=== PATIENT | male | born 1970 | race Caucasian/White ===

== ENCOUNTER → 2020-03-03 | Day surgery (SDC) | payer OTHER ==
[~2020-03-03] MED LIST: APIX2.5T PO; IPRATRPIUM/ALBUTEROL 0.5/2.5MG 3 ML NEBU. NEB PRN; IV RINGERS SOLUTION,LACTATED 1,000 ML IV SCH; LEVO50TA72 PO; ONDANSETRON PF 4 MG/2 ML VIAL. IV PRN; PROPOFOL 10,000 MCG/ML (20ML) VIAL IV ONE
[2020-03-03 10:56] VITALS: BP 128/88
== END | disposition home or self-care (01) ==
LOC: SURG 08:45
PROVIDERS: ATTEND Internal Medicine Gastroenterology
DX: Z12.11 Encounter for screening for malignant neoplasm of colon (principal); K57.30 Diverticulosis of large intestine without perforation or abscess without bleeding; K63.89 Other specified diseases of intestine; Z87.09 Personal history of other diseases of the respiratory system; Z86.010 Personal history of colon polyps; Z87.442 Personal history of urinary calculi; Z80.0 Family history of malignant neoplasm of digestive organs
CPT/HCPCS: 45378; J2704; J7120; U0003-CS